=== PATIENT | male | born 1970 | race Caucasian/White ===

== ENCOUNTER → 2022-08-21 | Day surgery (SDC) | payer BC, MEDICAID ==
[~2022-08-21] VITALS: Ht 170.2 cm; Wt 68.9 kg
[~2022-08-21] MED LIST: BALANCED SALT IRRIG SOLN 15ML ONE; BALANCED SALT IRRIG SOLN COMB1 500ML OP NR; CIPROFLOXACIN 0.3% OPHTH SOLN 2.5ML ONE; CYCLOPENTOLATE HCL 1% OPHTH DROPS 2ML RIGHTEYE NR; DORZ10DR8 BOTHEYE; FENTANYL CITRATE/PF 50MCG/ML 2ML VIAL ONE; GLUC100017 PO; HYALURONATE SODIUM 10 MG/ML 0.55ML SYRINGE IO ONE; LIDOCAINE HCL 2%/EPINEPHRINE 1:100,000 20 ML VIAL INFIL ONE; LIDOCAINE HCL/PF 2% 20MG/ML 5 ML/VIAL ONE; MIDAZOLAM HCL 2 MG/2 ML VIAL ONE; NEO/POLYMYX B SULF/DEXAMETH OPHTH OINT 3.5GM ONE; PHENYLEPHRINE HCL 10% OPHTH DROPS 5ML RIGHTEYE NR; PREDNISOLONE ACETATE 1% OPHTH DROPS 5ML ONE; TETRACAINE 0.5% OPHTH DROPS 4ML ONE; TROPICAMIDE 1% OPHTH DROPS 15ML RIGHTEYE NR; TRYPAN BLUE 0.5 ML DISP.SYRIN IO ONE; VITA1TAB18 PO
== END | disposition home or self-care (01) ==
LOC: OR 05:34
PROVIDERS: ATTEND Ophthalmology
DX: H25.89 Other age-related cataract (principal); Z79.899 Other long term (current) drug therapy; Z98.890 Other specified postprocedural states
CPT/HCPCS: 66984; J3010; J2250; J3490; V2632; Q9957